=== PATIENT | female | born 1995 | race Caucasian/White ===

== ENCOUNTER 2017-07-22 14:51 | Emergency (ER) | payer BC ==
[2017-07-22] MEDS ORDERED: metroNIDAZOLE 500 MG TAB ONE (15:26)
[2017-07-22] MEDS ORDERED: Azithromycin 250 MG TAB ONE (15:26)
[2017-07-22] MEDS ORDERED: Lidocaine 1% PF 5 ML VIAL ONE (15:26)
[2017-07-22] MEDS ORDERED: cefTRIAXone\\ROCEPHIN 250 MG VIAL ONE (15:26)
[2017-07-22 15:37] LABS: Bilirubin Negative (Negative); Blood, Urine Small (Negative); Clarity Clear (Clear); Glucose, Urine (Dipstick) Negative (Negative); Leukocyte Negative (Negative); Nitrite Negative (Negative); Protein, Urine (Dipstick) Negative (Neg-Trace); Urobilinogen 0.2 mg/dL (0.2-1.0)
[2017-07-22 15:41] LABS: Pregnancy Test - Urine (BHCG) Negative (Negative); Pregu Control Background? CLEAR/WHITE (CLR/WHITE); Pregu Control Bar Appear? YES (CONTROL BAR)
[2017-07-22 15:46] LABS: Bacteria/HPF 1+ HPF (None Seen); WBC/HPF None Seen HPF (0-3)
[2017-07-22] MEDS ORDERED: Ondansetron ODT 4 MG TAB ONE (16:01)
[2017-07-24 21:57] LABS: Chlamydia by PCR Not Detected (NotDetected); GC by PCR Not Detected (NotDetected)
== END 2017-07-22 16:05 | disposition home or self-care (01) ==
LOC: SCSER 14:51
DX: R10.2 Pelvic and perineal pain (principal)
CPT/HCPCS: 81003; 81015; 81025; 87480; 87491; 87510; 87591; 87660; 96372; J0696; J2001; Q0162